=== PATIENT | male | born 1950 | race Caucasian/White ===

== ENCOUNTER 2016-12-06 14:56 | Emergency (ER) | payer OTHER ==
[~2016-12-06] VITALS: Ht 165.1 cm; Wt 68.0 kg
[2016-12-06] MEDS ORDERED: INSLAN SQ (14:59)
[2016-12-06] MEDS ORDERED: INSU100C14 SQ (14:59)
[2016-12-06 15:01] LABS: GLUCOSE,POINT OF CARE 90 MG/DL (70-110)
[2016-12-06] MEDS ORDERED: VITAD1000 PO (15:02)
[2016-12-06] MEDS ORDERED: LOSA50TA37 PO (15:02)
[2016-12-06] MEDS ORDERED: PRAV40 PO (15:02)
[2016-12-06] MEDS ORDERED: METF500T4 PO (15:02)
[2016-12-06] MEDS ORDERED: TAMS0.4C32 PO (15:02)
[2016-12-06] MEDS ORDERED: ASPI81 PO (15:02)
[2016-12-06 15:25] LABS: BASOPHILS % (AUTO) 0.2 % (0.0-2.0); EOSINOPHILS % (AUTO) 0.2 % (1.0-6.0); HEMATOCRIT 38.8 % (41-53); HEMOGLOBIN 13.4 g/dL (13.5-17.5); LYMPHOCYTES # (AUTO) 1.1 K/uL (1.0-4.8); LYMPHOCYTES % (AUTO) 7.8 % (22.0-44.0); MEAN CORPUSCULAR HEMOGLOBIN 31.5 pg (26.0-34.0); MEAN CORPUSCULAR HGB CONC 34.5 G/dL (31.0-37.0); MEAN CORPUSCULAR VOLUME 91 fL (80-100); MONOCYTES # (AUTO) 0.9 K/uL (0.1-1.0); MONOCYTES % (AUTO) 5.9 % (2.0-9.0); NEUTROPHILS # (AUTO) 12.5 K/uL (1.8-7.7); NEUTROPHILS % (AUTO) 85.9 % (40.0-70.0); PLATELET COUNT (AUTO) 287 K/uL (150-450); RED BLOOD CELL COUNT(AUTO) 4.26 MIL/uL (4.50-5.90); WHITE BLOOD COUNT (AUTO) 14.6 K/uL (4.5-11.0)
[2016-12-06 15:39] LABS: CALCIUM, TOTAL 9.4 mg/dL (8.8-10.5); CREATININE 1.63 mg/dL (0.60-1.30); POTASSIUM 4.6 mmol/L (3.5-5.1)
[2016-12-06 15:44] LABS: BILIRUBIN,TOTAL 0.4 mg/dL (0.1-1.0); TOTAL PROTEIN, SERUM 7.5 g/dL (6.4-8.2)
[2016-12-06 15:45] LABS: RBC MORPHOLOGY COMMENT NORMAL RBC MORPH
[2016-12-06 16:57] LABS: GLUCOSE,POINT OF CARE 135 MG/DL (70-110)
[2016-12-06 18:07] LABS: GLUCOSE,POINT OF CARE 120 MG/DL (70-110)
[2016-12-06 18:56] VITALS: BP 120/69
== END 2016-12-06 19:49 | disposition home or self-care (01) ==
LOC: EMS 14:57
DX: E11.649 Type 2 diabetes mellitus with hypoglycemia without coma (principal); I10 Essential (primary) hypertension; E78.00 Pure hypercholesterolemia, unspecified; Z79.4 Long term (current) use of insulin
CPT/HCPCS: 82962; 99284